=== PATIENT | male | born 1955 | race Caucasian/White ===

== ENCOUNTER → 2025-01-10 11:45 | Outpatient (REF) | payer OTHER, SELFPAY | LOC: RAD 11:45 | PROVIDERS: ATTENDING PHYSICIAN Hospitalist | DX: R05.3 Chronic cough (principal) | CPT/HCPCS: 71046 ==

== ENCOUNTER → 2025-02-07 15:54 | Outpatient (REF) | payer OTHER, SELFPAY | LOC: DHSLP 15:54 | PROVIDERS: ATTENDING PHYSICIAN Hospitalist | DX: G47.33 Obstructive sleep apnea (adult) (pediatric) (principal) | CPT/HCPCS: 95800 ==

== ENCOUNTER → 2025-07-28 12:01 | Outpatient (REF) | payer OTHER, SELFPAY | LOC: REG 12:01 | PROVIDERS: ATTENDING PHYSICIAN Hospitalist | DX: M79.641 Pain in right hand (principal); M79.642 Pain in left hand; G89.29 Other chronic pain; M25.561 Pain in right knee; M25.562 Pain in left knee; M62.838 Other muscle spasm | CPT/HCPCS: 72040; 73130; 73560 ==

== ENCOUNTER → 2025-09-26 12:46 | Outpatient (REF) | payer OTHER, SELFPAY | LOC: RAD 12:46 | PROVIDERS: ATTENDING PHYSICIAN Hospitalist | DX: Z91.81 History of falling (principal); R07.89 Other chest pain | CPT/HCPCS: 71101 ==